=== PATIENT | male | born 1960 | race Caucasian/White ===

== ENCOUNTER 2017-05-29 07:12 | Day surgery (SDC) | payer BC ==
[2017-05-29] MEDS ORDERED: Sodium Chloride 0.9% 10 ML Syringe FLUSH PRN (07:15)
[2017-05-29] MEDS ORDERED: Lactated Ringers 1,000 ML IV SCH (07:15)
--- NOTE | 2017-05-29 08:55 | PCM.PN ---
- General Info Date of Service: 05/29/17 - Review of Systems Systems Review Comment:: 57 y/o male here for his initial screening colonoscopy. He is medically stable to proceed. There has been no significant change to his health status since his last exam. The proposed colonoscopy has been discussed with him including risks such as bleeding and GI injury and he agrees to proceed. - Patient Data Vitals - most recent: Last Vital Signs Temp 97.8 F 05/29/17 07:34 Pulse 80 05/29/17 07:34 Resp 14 05/29/17 07:34 BP 116/79 05/29/17 07:34 Pulse Ox 98 05/29/17 07:34 Weight - most recent: 233 lb Med Orders - Current: Current Medications Lactated Ringer's (Ringers, Lactated) 1,000 mls @ 125 mls/hr IV ASDIRECTED MARILYN Last Admin: 05/29/17 07:50 Dose: 125 mls/hr Sodium Chloride (Saline Flush) 10 ml FLUSH ASDIRECTED PRN PRN Reason: Keep Vein Open - Problem List Review Problem List Initiated/Reviewed/Updated: Yes - My Orders Last 24 Hours: My Active Orders 05/29/17 07:15 Patient Status [ADT] Routine Verify Patient Consent Obtain [RC] ASDIRECTED Lactated Ringers [Ringers, Lactated] 1,000 ml IV ASDIRECTED Sodium Chloride 0.9% [Saline Flush] 10 ml FLUSH ASDIRECTED PRN Peripheral IV Insertion Adult [OM.PC] Routine - Assessment Assessment:: Colon Cancer Screening - Plan Plan:: Colonoscopy
[2017-05-29] MEDS ORDERED: Propofol 200 MG/20 ML SDV IV ONE (09:00)
[2017-05-29] MEDS ORDERED: Midazolam 1 MG/ML 2 ML SDV IV ONE (09:00)
--- NOTE | 2017-05-29 09:34 | PCM.OPNOTE ---
- General Post-Op/Procedure Note Date of Surgery/Procedure: 05/29/17 Operative Procedure(s): Colonoscopy Findings: Normal Colon Pre Op Diagnosis: Colon Cancer Screening Post-Op Diagnosis: Normal Colon Anesthesia Technique: MAC Primary Surgeon: Ta Mcgrath Pathology: none Output, Urine Amount: 0 EBL in mLs: 0 Complications: None Condition: Good
[2017-05-29 12:40] VITALS: BP 102/63
--- NOTE | 2017-05-29 13:32 | OR ---
DATE OF OPERATION: 05/29/2017 SURGEON: Ta Mcgrath MD PREOPERATIVE DIAGNOSIS: Colon cancer screening. POSTOPERATIVE DIAGNOSIS: Normal colon. OPERATION PERFORMED: Colonoscopy. INDICATIONS FOR SURGERY: This 57-year-old male presents for his initial screening colonoscopy. FINDINGS: The patient's colon appears normal. No polyps or visible abnormalities were seen. PROCEDURE IN DETAIL: The patient was taken to the procedure room. He was given intravenous sedation and with him in the left lateral decubitus position, digital rectal exam was performed showing no rectal masses. The Olympus colonoscope was inserted into the rectum. Retroflexed examination of the rectal canal was performed. The scope was then carefully advanced under direct visualization through the entire length of the colon until the cecum was reached. Cecal acquisition was confirmed by noting the normal internal cecal anatomy including the appendiceal orifice and ileocecal valve. The light was also noted to transilluminate the abdominal wall in the right lower quadrant. After carefully examining the cecum, the scope was slowly withdrawn sequentially re-examining the colonic segment until the entire colon and rectum had been fully examined. The scope was then removed and the patient was taken from the procedure room in satisfactory condition. ESTIMATED BLOOD LOSS: Zero. COMPLICATIONS: None. PROGNOSIS: Good. /[id number] VANESSA/ARLETH
== END 2017-05-29 10:35 | disposition home or self-care (01) ==
LOC: FB.SDS 07:12
PROVIDERS: ATTEND Surgery
DX: Z12.11 Encounter for screening for malignant neoplasm of colon (principal); Z88.2 Allergy status to sulfonamides; Z88.8 Allergy status to other drugs, medicaments and biological substances; Z91.030 Bee allergy status
CPT/HCPCS: 45378; J2250; J2704; J7120